=== PATIENT | female | born 1940 | race Caucasian/White ===

== ENCOUNTER → 2016-09-09 | Outpatient (CLI) | payer OTHER ==
--- NOTE | 2016-09-10 08:50 | CT ---
EXAM DESCRIPTION: Abdoment/Pelvis w/o Contrast CLINICAL HISTORY: DIARRHEA COMPARISON: None Available TECHNIQUE: CT of the abdomen and Pelvis was performed without IV contrast. This exam was performed according to our departmental dose-optimization program, which includes automated exposure control, adjustment of the mA and/or kV according to patient size and/or use of iterative reconstruction technique. FINDINGS: Colonic diverticulosis is noted without colonic wall thickening or pericolonic inflammation to suggest diverticulitis. The uterus and ovaries are not identified, please correlate with surgical history. No bladder wall thickening. No dilated small bowel loops. The terminal ileum and ileocecal junction are unremarkable. The appendix is not identified, but there are no secondary signs of appendicitis. No lung base abnormality. No pneumoperitoneum, ascites or adenopathy. No hiatal hernia or gastric wall thickening. The liver, spleen, pancreas, kidneys and right adrenal are unremarkable. There is a 1.5 cm left adrenal adenoma. There is an L4 compression fracture, new from February, but likely not acute. An old L3 compression fracture is noted with augmentation at the same level, also new from February,. No acute fracture or malalignment. Incidentally noted is a small fat-containing umbilical hernia without complication. IMPRESSION: Colonic diverticulosis, but no diverticulitis or other apparent abnormality to explain patient's symptoms. Electronically signed by: Mychal Garg MD 09/10/2016 8:49 AM CDT
== END | disposition home or self-care (01) ==
LOC: RAD 13:49
PROVIDERS: ATTEND General Practice
DX: R19.7 Diarrhea, unspecified (principal); R10.9 Unspecified abdominal pain

== ENCOUNTER → 2019-04-04 | Outpatient (CLI) | payer OTHER ==
--- NOTE | 2019-04-04 11:55 | RAD ---
EXAM DESCRIPTION: Bilateral Ribs CLINICAL HISTORY: PLEURODYNIA COMPARISON: None FINDINGS: Frontal view the thorax with 2 views of the bilateral ribs. No displaced rib fracture or rib lesion is present bilaterally. No acute cardiopulmonary disease process. Remote augmentation changes noted throughout the lumbar vertebrae indicating osteoporosis. IMPRESSION: No displaced rib fracture or rib lesion. No acute cardiopulmonary disease process. Electronically signed by: Larry Szymanski MD 04/04/2019 11:53 AM [facility]
== END ==
LOC: RAD 11:14
PROVIDERS: ATTEND Nurse Practitioner
DX: R07.81 Pleurodynia (principal)